=== PATIENT | female | born 1980 | race Caucasian/White ===

== ENCOUNTER 2017-11-05 14:39 | Emergency (ER) | payer MEDICAID ==
[~2017-11-05] VITALS: Ht 160 cm; Wt 70.0 kg
[2017-11-05] MEDS ORDERED: CYCLOBENZAPRINE 10MG TABLET PO ONE (17:45)
[2017-11-05] MEDS ORDERED: IBUPROFEN 600MG TABLET PO ONE (17:45)
[2017-11-05 18:48] VITALS: BP 123/76
== END 2017-11-05 18:49 | disposition home or self-care (01) ==
LOC: ER 14:39
DX: M54.2 Cervicalgia (principal); V49.88XA Car occupant (driver) (passenger) injured in other specified transport accidents, initial encounter; Y93.89 Activity, other specified; Y92.89 Other specified places as the place of occurrence of the external cause; Y99.8 Other external cause status
CPT/HCPCS: 99283